=== PATIENT | male | born 1935 | race Caucasian/White ===

== ENCOUNTER 2018-10-04 08:38 | Day surgery (SDC) | payer MEDICARE, BC ==
[2018-10-04] VITALS (12 sets, daily range): BP systolic 95–124; BP diastolic 59–76; PULSE 61–77; TEMP 97.6–98.3
[~2018-10-04] VITALS: Ht 185.4 cm; Wt 139.3 kg
[~2018-10-04 08:38] MED LIST: ASPIRIN 32325 MG/TAB PO; CENTRUM SILVER1 CTB PO; CITRACAL + D 311 TAB PO; COUMADIN 5MG5 MG/TAB PO; COVERA-HS180 MG PO; CRANBERRY FRUI425 MG PO; CRESTOR5 MG PO; DEPAKOTE ER 50500 MG PO; DOXAZOCIN; DOXAZOSIN4 MG PO; EXCEDRIN TENSIO1 TAB PO; EXCEDRIN TENSION HA; FERROUS SU325 MG/TAB PO; FISH OIL500 MG PO; FLOVENT DI50 MCG/Act IH; FOLIC ACID; FOLIC ACID0.4 MG PO; HCTZ 25MG25 MG PO; IRON TABLETS325 MG PO; IRON65 M1 PO; KLOR-CON 1010 MEQ; LECITHIN SUPER420 MG PO; LEVOTHYROXINE0.05 M1 PO; LIPITOR20 MG PO; LIPOIC ACID; LIQUID MAGNESI400 MG PO; LOPRESSOR 225 MG/TAB PO; LOVENOX 100100 MG/ML SQ; LOVENOX 3030 MG/0.3 SQ; MAG-OX 400400 MG/TAB PO; MAGNESIUM OXIDE PO; MAXIMUM D310000 IU PO; MIGRAINE CAPSUL1 CAP PO; MILK OF MA400 MG/5 M PO; NAPROSYN 2250 MG/TAB PO; OMEGA 31000 MG PO; PANTOPRAZOLE40 MG PO; POTASSIUM GLUCO80 MG PO; PROTONIX 40MG T40 MG PO; SELENIUM2 PO; SYNTHROID0.075 MG PO; SYNTHROID0.088 MG/T PO; TRILIPIX 135MG PO; TRILIPIX45 MG PO; VITAMIN B121000 MC2 SL; VITAMIN C500 MG PO; VITAMIN D31000 I1 PO; [UNRECOGNIZED DRUG - OTHER]; [UNRECOGNIZED DRUG - OTHER] PO; [UNRECOGNIZED DRUG - REMARK] PO
[2018-10-04 09:59] LABS: HEMATOCRIT 40.4 % (42.0-52.0); HEMOGLOBIN 13.3 g/dl (13.5-18.0); MEAN CELL VOLUME 94 fl (80.0-100.0); MEAN CORPUSCULAR HEMOGLOBIN 31 pg (27.0-31.0); MEAN CORPUSCULAR HGB CONC 33 g/dl (33.0-37.0); MEAN PLATELET VOLUME 10.4 fl (7.4-10.4); PLATELET COUNT 230 K/mm3 (130-400); RED BLOOD COUNT 4.31 M/mm3 (4.20-5.60)
[2018-10-04 10:02] LABS: INR 1.3 (0.8-3.0); PROTHROMBIN TIME 14.3 SECONDS (9.7-12.8)
[2018-10-04 10:07] LABS: CALCIUM 8.9 mg/dL (8.4-10.2); CREATININE, serum 0.89 mg/dL (0.66-1.25); POTASSIUM 3.8 mmol/L (3.4-5.0)
--- NOTE | 2018-10-04 10:43 | NUR ---
ALL MEDICATIONS GIVEN VIA VERBAL ORDER WITH READBACK WITH MD. SEE MERGE FOR ALL ADMIN TIMES.
[2018-10-04] MEDS ORDERED: VERELAN360 MG PO (10:53)
[2018-10-04] MEDS ORDERED: COREG 3.123.125 MG/T PO (10:53)
[2018-10-04] MEDS ORDERED: ZYRTEC 10MG10 MG PO (10:54)
[2018-10-04] MEDS ORDERED: COZAAR 25MG25 MG/TAB PO ×2 (10:55→11:18)
[2018-10-04] MEDS ORDERED: TYLENOL 325MG325 MG PO (10:56)
[2018-10-04] MEDS ORDERED: OCUVITE1 TA1 PO (10:57)
[2018-10-04] MEDS ORDERED: [UNRECOGNIZED DRUG - REMARK] PO (10:59)
[2018-10-04] MEDS ORDERED: FOCUS FACTOR PO (11:00)
[2018-10-04] MEDS ORDERED: [UNRECOGNIZED DRUG - OTHER] PO (11:01)
[2018-10-04] MEDS ORDERED: COREG 6.256.25 MG/TA PO (11:17)
--- NOTE | 2018-10-04 16:29 | NUR ---
Pt back to room 11 post cardiac catherization. VSS and Ax0x3. Right groin femoral site is c/d/i. Pulses readily palpable. Pt denies pain at this time and is comfortably resting in bed. Will continue to monitor.
--- NOTE | 2018-10-04 16:37 | NUR ---
Pt VS remained stable and r femoral site c/d/i post cardiac cath. Pt tolerated food and fluid PO without difficulty. Ambulated twice around nursing station and no changes to site post.20g IV removed from left AC and discharge instructions reviewed and signed. Pt safely escorted out via wheelchair with and son at side.
== END 2018-10-04 16:10 | disposition home or self-care (01) ==
LOC: COL.CAR 08:38
PROVIDERS: Internal Medicine Cardiovascular Disease
DX: I25.10 Atherosclerotic heart disease of native coronary artery without angina pectoris (principal); R94.39 Abnormal result of other cardiovascular function study; G47.33 Obstructive sleep apnea (adult) (pediatric); I48.0 Paroxysmal atrial fibrillation; I42.0 Dilated cardiomyopathy; G43.909 Migraine, unspecified, not intractable, without status migrainosus; I44.7 Left bundle-branch block, unspecified; I34.0 Nonrheumatic mitral (valve) insufficiency; Z88.1 Allergy status to other antibiotic agents; Z91.09 Other allergy status, other than to drugs and biological substances; Z88.2 Allergy status to sulfonamides; Z79.82 Long term (current) use of aspirin; Z79.01 Long term (current) use of anticoagulants; Z86.711 Personal history of pulmonary embolism
CPT/HCPCS: C1760; C1894; J1644; J2250; J3010; Q9967

== ENCOUNTER 2020-02-27 10:28 | Day surgery (SDC) | payer MEDICARE, BC ==
[~2020-02-27] VITALS: Ht 185.5 cm; Wt 128.3 kg
[~2020-02-27 10:28] MED LIST changes: -ASPIRIN 32325 MG/TAB PO; +ASPIRIN 81M81 MG/TA2 PO; +COREG 3.123.125 MG/T PO; +COREG 6.256.25 MG/TA PO; +COZAAR 25MG25 MG/TAB PO; +FOCUS FACTOR PO; +OCUVITE1 TA1 PO; -PANTOPRAZOLE40 MG PO; +TYLENOL 8 HR PO; +VERELAN180 MG PO; +ZYRTEC 10MG10 MG PO; +[UNRECOGNIZED DRUG - OTHER] PO; +[UNRECOGNIZED DRUG - REMARK] PO
[2020-02-27 11:34] LABS: HEMOGLOBIN 13.7 g/dl (13.5-18.0); MEAN CELL VOLUME 95 fl (80.0-100.0); MEAN CORPUSCULAR HEMOGLOBIN 31 pg (27.0-31.0); MEAN CORPUSCULAR HGB CONC 33 g/dl (33.0-37.0); MEAN PLATELET VOLUME 10.6 fl (7.4-10.4); PLATELET COUNT 227 K/mm3 (130-400); RED BLOOD COUNT 4.42 M/mm3 (4.20-5.60); REDCELL DISTRIBUTION WIDTH-CV 15.5 % (11.5-14.5)
[2020-02-27 11:37] VITALS: BP 115/85; PULSE 83; TEMP 98.8
[2020-02-27 11:38] LABS: INR 3.5 (0.8-3.0); PROTHROMBIN TIME 39.7 SECONDS (9.7-12.8)
[2020-02-27 11:41] LABS: PARTIAL THROMBOPLASTIN TIME 44.4 SECONDS (26.0-37.0)
[2020-02-27] MEDS ORDERED: SYNTHROID0.088 MG/T PO (11:41)
[2020-02-27] MEDS ORDERED: COUMADIN 5MG5 MG/TAB PO (11:45)
[2020-02-27 11:46] LABS: CREATININE, serum 0.95 (0.66-1.25); MAGNESIUM 1.7 mg/dL (1.6-2.3); POTASSIUM 4.2 mmol/L (3.4-5.0)
[2020-02-27] MEDS ORDERED: COREG 6.256.25 MG/TA PO (11:46)
[2020-02-27] MEDS ORDERED: HCTZ 25MG TAB25 MG PO (11:46)
[2020-02-27] MEDS ORDERED: PEPCID40 MG PO (11:47)
[2020-02-27] MEDS ORDERED: COZAAR 25MG25 MG/TAB PO (11:47)
[2020-02-27] MEDS ORDERED: NATURAL POTASS595 MG PO (11:51)
[2020-02-27] MEDS ORDERED: vitamin d3 PO (11:51)
[2020-02-27] MEDS ORDERED: MAGNESIUM250 M1 PO (11:52)
[2020-02-27] MEDS ORDERED: NATURE'S BLEN1200 MG PO (11:52)
[2020-02-27] MEDS ORDERED: MULTAQ400 MG PO (11:54)
[2020-02-27 12:10] VITALS: BP 107/75; PULSE 61
[2020-02-27 12:14] LABS: THYROID STIMULATING HORMONE 3.54 uIU/mL (0.465-4.680)
[2020-02-27 12:15] VITALS: BP 118/76; PULSE 60
[2020-02-27 12:30] VITALS: BP 119/81; PULSE 58
[2020-02-27 12:45] VITALS: BP 112/88; PULSE 59
[2020-02-27 13:00] VITALS: BP 115/77; PULSE 57
--- NOTE | 2020-02-27 13:11 | NUR ---
Discharge instructions given to pt.pt verbalizes understanding.INT removed,catheter tip intact.
--- NOTE | 2020-02-27 13:30 | NUR ---
pT SON ARRIVED.PT ESCORTED OUT BY THIS NURSE.
== END 2020-02-27 14:20 | disposition home or self-care (01) ==
LOC: COL.CAR 10:28
PROVIDERS: Internal Medicine Cardiovascular Disease
DX: I48.0 Paroxysmal atrial fibrillation (principal); I25.10 Atherosclerotic heart disease of native coronary artery without angina pectoris; I34.0 Nonrheumatic mitral (valve) insufficiency; I42.9 Cardiomyopathy, unspecified; I10 Essential (primary) hypertension; G47.33 Obstructive sleep apnea (adult) (pediatric); G43.909 Migraine, unspecified, not intractable, without status migrainosus; E66.9 Obesity, unspecified; E03.9 Hypothyroidism, unspecified; N40.0 Benign prostatic hyperplasia without lower urinary tract symptoms; Z95.5 Presence of coronary angioplasty implant and graft; Z86.711 Personal history of pulmonary embolism; Z79.01 Long term (current) use of anticoagulants; Z88.2 Allergy status to sulfonamides; Z91.048 Other nonmedicinal substance allergy status; Z88.1 Allergy status to other antibiotic agents; Z79.82 Long term (current) use of aspirin; Z80.1 Family history of malignant neoplasm of trachea, bronchus and lung
CPT/HCPCS: J2704; J7120

== ENCOUNTER → 2021-06-25 | Outpatient (CLI) | payer MEDICARE, BC ==
[~2021-06-25] MED LIST changes: +BETAPACE 80MG80 MG PO; +HCTZ 25MG TAB25 MG PO; +MAGNESIUM250 M1 PO; +MULTAQ400 MG PO; +NATURAL POTASS595 MG PO; +NATURE'S BLEN1200 MG PO; +PEPCID40 MG PO; +VITAMIN D 400400 IU PO
== END ==
LOC: MC.RAD 14:40
DX: N63.20 Unspecified lump in the left breast, unspecified quadrant (principal)

== ENCOUNTER 2021-09-18 06:43 | Day surgery (SDC) | payer MEDICARE, BC ==
[~2021-09-18] VITALS: Ht 185.5 cm; Wt 129.0 kg
[2021-09-18] VITALS (10 sets, daily range): BP systolic 103–137; BP diastolic 65–87; PULSE 55–72; TEMP 97.2
[2021-09-18 07:56] LABS: HEMATOCRIT 42.3 % (42.0-52.0); HEMOGLOBIN 14.1 g/dl (13.5-18.0); MEAN CELL VOLUME 91 fl (80.0-100.0); MEAN CORPUSCULAR HEMOGLOBIN 31 pg (27-31); MEAN CORPUSCULAR HGB CONC 33 g/dl (33.0-37.0); MEAN PLATELET VOLUME 10.6 fl (7.4-10.4); PLATELET COUNT 228 K/mm3 (130-400); RED BLOOD COUNT 4.63 M/mm3 (4.20-5.60); REDCELL DISTRIBUTION WIDTH-CV 14.5 % (11.5-14.5)
[2021-09-18 08:06] LABS: INR 1.3 (0.8-3.0); PROTHROMBIN TIME 14.6 SECONDS (9.7-12.8)
[2021-09-18] MEDS ORDERED: ALDACTONE 25MG25 M1 PO (08:06)
[2021-09-18 08:09] LABS: PARTIAL THROMBOPLASTIN TIME 27.2 SECONDS (26.0-37.0)
[2021-09-18] MEDS ORDERED: COREG 3.123.125 MG/T PO (08:18)
[2021-09-18] MEDS ORDERED: LASIX 20MG TABL20 MG PO (08:18)
[2021-09-18] MEDS ORDERED: RANEXA 500MG T500 MG PO (08:20)
[2021-09-18] MEDS ORDERED: PHARMASSURE ZIN50 MG PO (08:20)
[2021-09-18] MEDS ORDERED: VITAMINC1000TA (08:21)
[2021-09-18] MEDS ORDERED: FLOVENT DI50 MCG/Act IH (08:22)
[2021-09-18] MEDS ORDERED: CRANBERRY FRUI425 MG PO (08:24)
[2021-09-18 08:40] LABS: CALCIUM 8.6 mg/dL (8.4-10.2); CREATININE, serum 0.83 mg/dL (0.72-1.25); POTASSIUM 3.6 mmol/L (3.5-4.5)
--- NOTE | 2021-09-18 09:15 | NUR ---
SEE MERGE DOCUMENTATION FOR MEDICATION ADMINISTRATION AND INTRA/POST PROCEDURE SEDATION ASSESSMENTS.
--- NOTE | 2021-09-18 09:55 | NUR ---
PT RECIEVED BACK TO EU 14 VIA BED FROM CHIP SEPARATOR. CALL LIGHT IN REACH, TAKES JUICE, REVIEWED ACTIVITY WITH PT, NO C/O
--- NOTE | 2021-09-18 11:15 | NUR ---
PT CON'T TO REST IN BED, TOOK JUICE AND WATER, DID NOT WANT MEAL AT THIS TIME OR SNACK, WATCHES TV
--- NOTE | 2021-09-18 12:00 | NUR ---
STARTED RELEASING TR BAND, 2CC OVER 15 MIN A TOTAL OF 6CC, OOZING OCCURRED AT SITE, 6CC OF AIR REPLACED, NO FURTHER OOZING NO SWELLING NOTED. WILL CON'T TO MONITOR AND RELEASE LATER, REVIEWED DISCHARGE INST. WITH PT AND , ON ACTIVITY OF RIGHT ARM AND MODERATE SEDATION PROTOCOL, ALSO NEXT APPT MADE AND NO MEDICATION CHANGES, PT MAY RESTART COUMADIN TONIGHT PER VOICE ORDER OF DR KING.
--- NOTE | 2021-09-18 12:45 | NUR ---
pt up to b/r to void, gait steady TR band site remains the same, no oozing or swelling noted.
--- NOTE | 2021-09-18 13:10 | NUR ---
released air from TR band 2cc at a time over 15 min with no bleeding or swelling noted to site, bandaid applied and coban for support, reviewed care of site with pt. pt up and dressed, iv dc'd intact with pressure applied Pt discharged at 1340 via w/c to car with family
== END 2021-09-18 13:40 | disposition home health service (06) ==
LOC: COL.CAR 06:43
PROVIDERS: Internal Medicine Cardiovascular Disease
DX: R07.89 Other chest pain (principal); I42.9 Cardiomyopathy, unspecified; I48.0 Paroxysmal atrial fibrillation; I25.10 Atherosclerotic heart disease of native coronary artery without angina pectoris; I08.0 Rheumatic disorders of both mitral and aortic valves; Z95.1 Presence of aortocoronary bypass graft
CPT/HCPCS: J1644; J2250; J3010; Q9967

== ENCOUNTER 2021-12-19 12:47 | Day surgery (SDC) | payer MEDICARE, BC ==
[2021-12-19] VITALS (9 sets, daily range): BP systolic 106–140; BP diastolic 36–72; PULSE 49–63; TEMP 97.1–98.9
[~2021-12-19] VITALS: Ht 185.4 cm; Wt 129.4 kg
[~2021-12-19 12:47] MED LIST changes: +ALDACTONE 25MG25 M1 PO; +LASIX 20MG TABL20 MG PO; +PHARMASSURE ZIN50 MG PO; +RANEXA 500MG T500 MG PO; +VITAMINC1000TA
[2021-12-19] MEDS ORDERED: LOVENOX120 MG/0.8 SQ (14:26)
--- NOTE | 2021-12-19 17:27 | NUR ---
PT. ARRIVE TO ROOM 345 FROM POST OP TURP. ORIENTED BUT DROWSY. NO COMPLAINTS OF NAUSEA OR PAIN. WILLETT IN PLACE WITH CONTINOUS BLADDER IRRIGATION AT MODERATE RATE. URINE IS CLEAR PALE YELLOW URINE. IV TO LEFT HAND WITH FLUIDS FLOWING. WATER PROVIDED AT BEDSIDE. HEAD TO TOE ASSESSMENT COMPLETE. SCD TO BLE. ORIENTED TO ROOM. NO FURTHER NEEDS AT THIS TIME. CALL LIGHT WITHIN REACH.
[2021-12-20 03:35] VITALS: BP 114/55; PULSE 68; TEMP 98.3
--- NOTE | 2021-12-20 07:21 | NUR ---
Patient here due to TURP procedure, had an uneventful shift. Patient is pleasant and A&Ox3. Full body assessment and medicatin adminstration completed without difficulty. Patient is on CBI with a 3 way catheter; urine output has been pale pink/peach in color. Patient denies pain or experiencing bladder spasms. Patient has tolerated oral intake well and had no other complaints throughout the evening. Call light within reach.
[2021-12-20 07:46] VITALS: BP 122/76; PULSE 58; TEMP 97.7
[2021-12-20 11:54] VITALS: BP 124/79; BP 126/89; PULSE 56; TEMP 98.3
[2021-12-20 16:00] VITALS: BP 103/67; PULSE 66; TEMP 98.7
[2021-12-20 19:36] VITALS: BP 124/60; PULSE 7; TEMP 99
[2021-12-21 00:09] VITALS: BP 100/47; PULSE 70; TEMP 99.3
--- NOTE | 2021-12-21 03:05 | NUR ---
Patient has had an uneventful shift thus far, resting quietly in bed with the TV on. Patient still has 3 way catheter in and continues CBI; producing pale yelllow urine. Denies any pain or bladder spasms. Assessment and medication adminstration completed without difficulty. Patient has no other complaints at this time, call light within reach.
[2021-12-21 03:50] VITALS: BP 125/69; PULSE 53; TEMP 99
[2021-12-21 08:00] VITALS: BP 129/83; PULSE 75; TEMP 98.4
--- NOTE | 2021-12-21 08:00 | NUR ---
PATIENT IS A&O. VSS. NO COMPLAINTS. WILLETT TO DD WITH MOD AMOUNTS OF CLEAR YELLOW URINE NOTED. CBI CLAMPED. PATIENT WILL LIKELY BE P&P TODAY WHEN UROLOGY ROUNDS. TOLERATING DIET WELL. LEFT HAND IV TO INT. HEAD TO TOE ASSESSMENT COMPLETE. AM MEDS GIVEN. NO OTHER NEEDS AT THIS TIME.
--- NOTE | 2021-12-21 09:15 | NUR ---
ROUNDING, SEE ORDERS.
--- NOTE | 2021-12-21 09:35 | NUR ---
PATIENT POSITIONED UP IN BED. P&P PER ORDERS AND PATIENT TOLERATED WELL. NOTED 200CC OF YELLOW URINE IN WILLETT BAG WHEN CD'D. PATIENT STARTED ON 6 CUP ROUTINE AND GIVEN EDUCATION.
[2021-12-21 11:49] VITALS: BP 121/71; PULSE 50; TEMP 97.6
--- NOTE | 2021-12-21 11:53 | NUR ---
SW met with pt to complete intake. The pt lives at home with his , Laney [phone]. The pt reports he is independent on all ADLs, and drives, but does use a cane in public and has a CPAP machine. The pt PCP is Dr. Presley and gets his medications from [facility] through [employer]. No issues with cost. The client reports he has DPO[employer] and in file. 1st agent is his and 2nd agent Phill his son. He does have a daughter as well. No other needs stated at this time. SW to await further recommendations and follow up. DC: Home
[2021-12-21 16:04] VITALS: BP 148/85; PULSE 63; TEMP 97.7
--- NOTE | 2021-12-21 16:30 | NUR ---
PATIENT COMPLETED 6 CUP ROUTINE AND MEET DISCHARGE CRITERIA. GAVE DISCHARGE INSTRUCTIONS AND ANSWERED QUESTIONS/CONCERNS. IV SITE DC'D AND COVERED WITH GAUZE & COBAN. PATIENT DRESSED, PACKED AND ESCORTED OUT VIA WC TO PERSONAL VEHICLE WHERE SON IS WAITING. PATIENT DISCHARGED.
== END 2021-12-21 16:30 | disposition home or self-care (01) ==
LOC: SDCO 12:47 → SURG 17:00 → SDCO 12-21 16:30
DX: N40.1 Benign prostatic hyperplasia with lower urinary tract symptoms (principal); N35.919 Unspecified urethral stricture, male, unspecified site; R39.15 Urgency of urination; R35.0 Frequency of micturition; R33.8 Other retention of urine; I42.9 Cardiomyopathy, unspecified; I34.0 Nonrheumatic mitral (valve) insufficiency; G47.33 Obstructive sleep apnea (adult) (pediatric); Z99.89 Dependence on other enabling machines and devices
CPT/HCPCS: OP; J0690; J2250; J2704; J3480; J7120

== ENCOUNTER 2022-05-12 07:53 | Day surgery (SDC) | payer MEDICARE, BC ==
[~2022-05-12] VITALS: Ht 185.4 cm; Wt 128.9 kg
[~2022-05-12 07:53] MED LIST changes: +FLONASEALLERGY NS; +LOVENOX120 MG/0.8 SQ; -VITAMIN D 400400 IU PO; +VITAMIN D31000 IU PO
[2022-05-12 08:26] VITALS: BP 108/66; PULSE 62; TEMP 97.1
--- NOTE | 2022-05-12 08:28 | NUR ---
Patient states INR on home test was 1.1. Communicated this result to Dr. Trujillo. Patient has held blood thinner for 5 days prior to colonoscopy per patient.
[2022-05-12] MEDS ORDERED: ASPIRIN E.C. 8181 MG PO (08:34)
[2022-05-12] MEDS ORDERED: ANTACID500 M1 PO (08:35)
[2022-05-12] MEDS ORDERED: MULTI VITAMINS1 TAB PO (08:47)
[2022-05-12 09:30] VITALS: BP 116/78; PULSE 54; TEMP 97
[2022-05-12 09:45] VITALS: BP 127/74; PULSE 50
[2022-05-12 10:00] VITALS: BP 126/80; PULSE 42
--- NOTE | 2022-05-12 10:02 | NUR ---
0930 - PT arrives from procedure drowsy but oriented, assisted w/ ambulating from cart to chair 2:1, gait is mildly unsteady. Monitors applied and vitals obtained. PT denies pain/nausea. Warm blankets provided and non-slip socks remain on. Snack and drink provided per PT request. is speaking w/ PT. Call garvin is within reach. 0945 - VSS. PT has finished snack and drink; requested RN contact for ride home. Call garvin remains within reach. 1000 - Vitals obtained. Call garvin within reach if needed.
--- NOTE | 2022-05-12 10:12 | NUR ---
1010 - IV discontinued. Catheter tip intact and pressure bandage applied; no redness or swelling. PT refused RN assistance changing into personal clothes; call garvin remains within reach if needed.
--- NOTE | 2022-05-12 10:26 | NUR ---
1015 - PT ambulates to bathroom w/ cane. Then back to bay #2 w/o difficulty. 1018 - DC instructions and educational material reviewed w/ PT who verbalized understanding and signed the related paperwork; all questions answered to PT satisfaction. PT then dismissed via wheelchair to the PT entrence by Cathleen RUIZ. PT has DC packet and personal beloning and was transferred into the care of his , his son is driving private car.
== END 2022-05-12 10:25 | disposition home or self-care (01) ==
LOC: SDCO 07:53
DX: Z12.11 Encounter for screening for malignant neoplasm of colon (principal); D12.0 Benign neoplasm of cecum; D12.3 Benign neoplasm of transverse colon; D12.4 Benign neoplasm of descending colon; D12.8 Benign neoplasm of rectum; G47.33 Obstructive sleep apnea (adult) (pediatric); Z79.899 Other long term (current) drug therapy; K64.0 First degree hemorrhoids; K57.30 Diverticulosis of large intestine without perforation or abscess without bleeding; Z80.0 Family history of malignant neoplasm of digestive organs
CPT/HCPCS: J2704; J7120